=== PATIENT | male | born 1965 | race Caucasian/White ===

== ENCOUNTER 2020-12-28 15:59 | Observation (INO) | payer OTHER ==
[2020-12-28 16:56] LABS: #Lymphocytes 1.8 thou/uL (1.20-3.40); #Monocytes 0.5 thou/uL (0.11-0.59); #Neutrophils 1.6 thou/uL (1.40-6.50); %Basophils 0.4 % (0.0-1.0); %Eosinophils 0.4 % (0.0-10.0); %Lymphocytes 46.2 % (21.0-51.0); %Monocytes 12.7 % (0.0-10.0); %Neutrophils 40.4 % (42.0-75.0); Hemoglobin 17.5 g/dL (14.0-18.0); Mean Corpuscular HGB CONC 33.8 g/dL (32.0-36.0); Mean Corpuscular Hemoglobin 31.8 pg (27.0-31.0); Mean Corpuscular Volume 94.3 fL (78.0-98.0); Mean Platelet Volume 6.8 fL (7.4-10.4); Platelet Count 126 thou/uL (130-400); RBC Distribution Width 12.5 % (11.5-14.5); Red Blood Cell (RBC) Count 5.49 mill/uL (4.70-6.10); White Blood Cell (WBC) Count 3.9 thou/uL (4.8-10.8)
[2020-12-28 17:16] LABS: Acetaminophen Less than 6.0 mcg/mL (10.0-30.0); Alcohol 222 mg/dL (Less than 10); Salicylate Less than 8.0 mg/dL (15.0-30.0)
[2020-12-28 17:20] LABS: ALT (SGPT) 117 U/L (8-55); AST (SGOT) 143 U/L (5-34); Albumin 4.4 g/dL (3.5-5.0); Alkaline Phosphatase 83 U/L (40-110); Anion Gap 14 mmol/L (10-20); BUN (Urea Nitrogen) 7 mg/dL (8.4-25.7); Bilirubin, Total 0.7 mg/dL (0.2-1.2); Calc. Creatinine Clearance 0 mL/min (70-130); Calcium 9.3 mg/dL (7.8-10.44); Carbon Dioxide 28 mmol/L (22-29); Chloride 102 mmol/L (98-107); Globulin 3.3 g/dL (2.4-3.5); Glucose 111 mg/dL (70-105); Protein, Total 7.7 g/dL (6.0-8.3); Sodium 140 mmol/L (136-145)
[2020-12-28] MEDS ORDERED: Lorazepam 1 MG TAB ONE (18:29)
[2020-12-28 18:34] LABS: Bilirubin Negative (Negative); Blood, Urine Negative (Negative); Clarity Clear (Clear); Glucose, Urine (Dipstick) Normal (Negative); Ketone, Urine Negative (Negative); Leukocyte Negative Leu/uL (Negative); Nitrite Negative (Negative); Protein, Urine (Dipstick) Negative (Neg-Trace); Specific Gravity, Urine 1.013 (1.002-1.036); Urobilinogen Normal mg/dL (Less than 2)
[2020-12-28 18:47] LABS: Amphetamine Not Detected (NotDetected); Barbiturates Screen Not Detected (NotDetected); Benzodiazepine Screen Detected (NotDetected); Cocaine Metabolite Screen Not Detected (NotDetected); Medtox Control Line Valid? VALID (VALID); Medtox Reader # READER 4; Methadone Not Detected (NotDetected); Methamphetamine Not Detected (NotDetected); Opiate Screen Not Detected (NotDetected); Oxycodone Screen Not Detected (NotDetected); Phencyclidine (PCP) Not Detected (NotDetected); THC/Cannabinoid Screen Not Detected (NotDetected); Tricyclic Screen Not Detected (NotDetected)
[2020-12-28] MEDS ORDERED: Bacitracin 1 PK ONE (18:51)
[2020-12-28] MEDS ORDERED: traZODone HCl 50 MG TAB ONE (20:50)
[2020-12-29] MEDS ORDERED: hydrOXYzine Pamoate 25 mg Capsule PO PRN (02:31)
[2020-12-29] MEDS ORDERED: traZODone HCl 50 MG TAB PO PRN (02:32)
[2020-12-29] MEDS ORDERED: Ibuprofen 600 MG TAB PO PRN (02:32)
[2020-12-29] MEDS ORDERED: Acetaminophen 325 MG TAB PO PRN ×2 (02:33→02:55)
[2020-12-29] MEDS ORDERED: chlordiazePOXIDE HCl 25 MG CAP ONE (02:45)
[2020-12-29] MEDS ORDERED: Lorazepam 2 MG/ML VIAL SLOW IVP PRN (02:48)
[2020-12-29] MEDS ORDERED: Diazepam 5 MG TAB PO PRN (02:51)
[2020-12-29] MEDS ORDERED: Ondansetron ODT 4 MG TAB PO PRN (02:55)
[2020-12-29] MEDS ORDERED: Ondansetron PF 4 MG/2 ML Vial IVP PRN (02:55)
[2020-12-29] MEDS ORDERED: Senokot S 8.6-50 MG TAB PO PRN (02:55)
[2020-12-29] MEDS ORDERED: Bisacodyl 5 MG TAB PO PRN (02:55)
[2020-12-29] MEDS ORDERED: Folic Acid 1 MG, Multivitamins, Adult 10 ML in Dextrose 5 %-0.45 % NaCl 1,000 ML IV SCH (03:00)
[2020-12-29] MEDS ORDERED: Thiamine HCl 200 MG/2 ML VIAL IM SCH (03:00)
[2020-12-29] MEDS ORDERED: Thiamine HCl 200 MG/2 ML VIAL SLOW IVP SCH (03:00)
[2020-12-29] MEDS ORDERED: D5 1/2 NS w/10 mEq KCl 1,000 ML/1,000 ML BAG IV SCH (03:00)
[2020-12-29 03:26] LABS: #Lymphocytes 1.6 thou/uL (1.20-3.40); #Monocytes 0.4 thou/uL (0.11-0.59); #Neutrophils 1.6 thou/uL (1.40-6.50); %Basophils 0.5 % (0.0-1.0); %Eosinophils 0.6 % (0.0-10.0); %Lymphocytes 43.2 % (21.0-51.0); %Neutrophils 43.7 % (42.0-75.0); Hemoglobin 16.5 g/dL (14.0-18.0); Mean Corpuscular HGB CONC 35.1 g/dL (32.0-36.0); Mean Corpuscular Hemoglobin 32.8 pg (27.0-31.0); Mean Corpuscular Volume 93.4 fL (78.0-98.0); Mean Platelet Volume 6.6 fL (7.4-10.4); Platelet Count 90 thou/uL (130-400); RBC Distribution Width 12.6 % (11.5-14.5); Red Blood Cell (RBC) Count 5.04 mill/uL (4.70-6.10); White Blood Cell (WBC) Count 3.6 thou/uL (4.8-10.8)
[2020-12-29 03:29] LABS: INR-International Normal Ratio 1.2; PTT 29.7 sec (22.9-36.1)
[2020-12-29 04:03] LABS: Phosphorus 3.1 mg/dL (2.3-4.7)
[2020-12-29 04:24] LABS: HBCM Index 0.06 S/CO (0-0.79); HBSAg Index 0.22 S/CO (0-0.99); Hep A IgM AB Non-Reactive (NonReactive); Hep A IgM S/CO 0.07 S/CO (0-0.79); Hep B Surf Ag Non-Reactive S/CO (NonReactive); Hep C IgG Ab Non-Reactive (NonReactive); Hep C Index 0.09 S/CO (0-0.79); Hepatitis B Core IgM Abs Non-Reactive (NonReactive)
[2020-12-29 04:38] LABS: ALT (SGPT) 104 U/L (8-55); AST (SGOT) 130 U/L (5-34); Alkaline Phosphatase 76 U/L (40-110); Anion Gap 14 mmol/L (10-20); BUN (Urea Nitrogen) 7 mg/dL (8.4-25.7); Bilirubin, Total 1.3 mg/dL (0.2-1.2); Calc. Creatinine Clearance 0 mL/min (70-130); Calcium 9.1 mg/dL (7.8-10.44); Carbon Dioxide 27 mmol/L (22-29); Cardiac Risk 3.9 (Less than 4.5); Chloride 102 mmol/L (98-107); Cholesterol 212 mg/dl (< 200 Desired); Glucose 120 mg/dL (70-105); HDL Cholesterol 55 mg/dL (>60 Neg Risk); LDL Cholesterol, Calculated 133 mg/dL; Potassium 4.1 mmol/L (3.5-5.1); Sodium 139 mmol/L (136-145); Triglycerides 121 mg/dL (Less than 150)
[2020-12-29] MEDS ORDERED: ALPRAZolam 1 MG TAB PO SCH ×2 (05:00→09:00)
[2020-12-29 05:35] VITALS: BMI 29.2
[2020-12-29 05:47] LABS: SARS-CoV-2 NAA Rapid Test Not Detected (NotDetected)
[2020-12-29 05:52] LABS: Troponin I Less than 0.010 ng/mL (< 0.028)
[2020-12-29] MEDS ORDERED: Levothyroxine Sodium 88 MCG TAB PO SCH (06:00)
[2020-12-29 08:48] LABS: Troponin I Less than 0.010 ng/mL (< 0.028)
[2020-12-29] MEDS ORDERED: Multivitamin W/ Minerals 1 TAB PO SCH (09:00)
[2020-12-29] MEDS ORDERED: busPIRone HCl 5 MG TAB PO SCH (09:00)
[2020-12-29] MEDS ORDERED: Pantoprazole 40 MG VIAL IVP SCH (09:00)
[2020-12-29] MEDS ORDERED: Enoxaparin Sodium 40 MG/0.4 ML SYRINGE SC SCH (09:00)
[2020-12-29] MEDS ORDERED: Folic Acid 1 MG TAB PO SCH (09:00)
[2020-12-29 11:24] VITALS: BP 137/89; TEMP 97.7
[2020-12-29] MEDS ORDERED: traZODone HCl 50 MG TAB PO SCH (21:00)
[2020-12-30] MEDS ORDERED: Diazepam 5 MG TAB PO PRN (04:00)
[2020-12-30] MEDS ORDERED: Magnesium Oxide 400 MG TAB PO SCH (09:00)
[2020-12-30] MEDS ORDERED: Thiamine 100 MG TAB PO SCH (09:00)
== END 2020-12-29 14:45 | disposition home or self-care (01) ==
LOC: ERS 15:59 → 2NO 12-29 02:37
PROVIDERS: ADMIT Student in an Organized Health Care Education/Training Program; ATTEND Internal Medicine
DX: F10.239 Alcohol dependence with withdrawal, unspecified (principal); R45.851 Suicidal ideations; R74.01 Elevation of levels of liver transaminase levels; E03.9 Hypothyroidism, unspecified; I10 Essential (primary) hypertension; Z79.899 Other long term (current) drug therapy; Z20.822 Contact with and (suspected) exposure to COVID-19; Y90.1 Blood alcohol level of 20-39 mg/100 ml
CPT/HCPCS: 36415; 76705; 80053; 80061; 80074; 80306; 80307; 81003; 83735; 84100; 84443; 84484; 85025; 85610; 85730; 96365; 96375; C9113; G0378; J3411; J3475; J3480; J3490; J7042; U0002; U0005